=== PATIENT | male | born 1995 | race Caucasian/White ===

== ENCOUNTER 2019-03-22 15:16 | Emergency (ER) | payer BC ==
[2019-03-22] MEDS ORDERED: Promethazine 25 MG/ML SDV IM ONE (15:27)
[2019-03-22] MEDS ORDERED: Morphine 4 MG/ML Syringe IM ONE (15:27)
--- NOTE | 2019-03-22 15:32 | EDM.PDOC ---
ED HPI GENERAL MEDICAL PROBLEM - General Chief Complaint: Lower Extremity Injury/Pain Stated Complaint: RIGHT LEG INJURY Time Seen by Provider: 03/22/19 15:24 Source of Information: Reports: Patient History Limitations: Reports: No Limitations - History of Present Illness INITIAL COMMENTS - FREE TEXT/NARRATIVE: Patient is an unfortunate 24-year-old male who presents emergency Department today with complaint of left leg and foot pain. Patient reports she was in his normal state of health approximately 20 minutes prior to arrival when he was riding a saddle bronc and was ejected from the horse and the horse stepped on his left ankle. Patient said swelling tenderness and pain in that ankle ever since. He was able to ambulate with an antalgic gait on his left reports she had an immense amount of pain. Pain is worse with ambulation or palpation improves with rest does not alleviate. Distal neurovascular is intact Left Lower Leg Pain Score (Numeric/FACES): 10 - Related Data Allergies Allergy/AdvReac Type Severity Reaction Status Date / Time No Known Allergies Allergy Verified 03/22/19 15:24 Home Meds: Home Meds Acetaminophen with Codeine [Tylenol with Codeine #3 Tablet] 1 each PO Q4H PRN # 20 tablet 03/22/19 [Rx] Review of Systems - Review of Systems Review Of Systems: See Below Constitutional: Denies: Chills, Fever Musculoskeletal: Reports: Leg Pain, Joint Pain ED EXAM, GENERAL - Physical Exam Exam: See Below Exam Limited By: No Limitations General Appearance: Alert, WD/WN, Mild Distress Ears: Normal External Exam, Normal Canal, Hearing Grossly Normal, Normal TMs Nose: Normal Inspection, Normal Mucosa, No Blood Throat/Mouth: Normal Inspection, Normal Lips, Normal Teeth, Normal Gums, Normal Oropharynx, Normal Voice, No Airway Compromise Head: Atraumatic, Normocephalic Neck: Normal Inspection, Supple, Non-Tender, Full Range of Motion Respiratory/Chest: No Respiratory Distress, Lungs Clear, Normal Breath Sounds, No Accessory Muscle Use, Chest Non-Tender Cardiovascular: Normal Peripheral Pulses, Regular Rate, Rhythm, No Edema, No Gallop, No JVD, No Murmur, No Rub GI/Abdominal: Normal Bowel Sounds, Soft, Non-Tender, No Organomegaly, No Distention, No Abnormal Bruit, No Mass Back Exam: Normal Inspection, Full Range of Motion, NT Extremities: Joint Swelling, Leg Pain (Patient has moderate swelling to his left heel malleolus and tenderness to his left midshaft fibula still neurovascular is intact), Other Neurological: Alert Skin Exam: Warm, Dry, No Rash ED TRAUMA EXTREMITY PROCEDURES - Additional/Other Procedure(s) Other (Free Text) Procedure(s): Ortho-Glass splint sugar tong left lower extremity applied by me post evaluation distal neurovascular intact Course - Vital Signs Last Recorded V/S: Last Vital Signs Temp 97.8 F 03/22/19 15:24 Pulse 84 03/22/19 15:24 Resp 16 03/22/19 15:24 BP 142/99 H 03/22/19 15:24 Pulse Ox 100 03/22/19 15:24 - Orders/Labs/Meds Orders: Active Orders 24 hr Category Date Time Status Ankle Min 3V Lt [CR] Stat Exams 03/22/19 15:28 Taken Foot Comp Min 3V Lt [CR] Stat Exams 03/22/19 15:28 Taken Tibia Fibula Lt [CR] Stat Exams 03/22/19 15:28 Taken Meds: Medications Discontinued Medications Generic Name Dose Route Start Last Admin Trade Name Freq PRN Reason Stop Dose Admin Morphine Sulfate 4 mg 03/22/19 15:27 03/22/19 15:50 Morphine IM 03/22/19 15:28 4 mg ONETIME ONE Administration Promethazine HCl 25 mg 03/22/19 15:27 03/22/19 15:49 Phenergan IM 03/22/19 15:28 25 mg ONETIME ONE Administration - Re-Assessments/Exams Free Text/Narrative Re-Assessment/Exam: 03/22/19 16:13 Left ankle interpret by me distal fibula fracture Departure - Departure Time of Disposition: 16:13 Disposition: Home, Self-Care 01 Clinical Impression: Fracture of distal fibula Qualifiers: Encounter type: initial encounter Fracture type: closed Fracture morphology: unspecified fracture morphology Laterality: left Qualified Code(s): S82.832A - Other fracture of upper and lower end of left fibula, initial encounter for closed fracture - Discharge Information Prescriptions: Acetaminophen with Codeine [Tylenol with Codeine #3 Tablet] 1 each PO Q4H PRN # 20 tablet PRN Reason: Pain Referrals: PCP,None [Primary Care Provider] - Forms: ED Department Discharge Additional Instructions: Home, rest, ice, elevate, follow-up with an orthopedic surgeon in the next week , use crutches, no weight bearing left lower extremity, return as needed for worsening condition Sepsis Event Note - Focused Exam Vital Signs: Vital Signs Temp Pulse Resp BP Pulse Ox 03/22/19 15:24 97.8 F 84 16 142/99 H 100 Date Exam was Performed: 03/22/19 Time Exam was Performed: 16:13 - My Orders Last 24 Hours: My Active Orders 03/22/19 15:28 Ankle Min 3V Lt [CR] Stat Foot Comp Min 3V Lt [CR] Stat Tibia Fibula Lt [CR] Stat - Assessment/Plan Last 24 Hours: My Active Orders 03/22/19 15:28 Ankle Min 3V Lt [CR] Stat Foot Comp Min 3V Lt [CR] Stat Tibia Fibula Lt [CR] Stat
--- NOTE | 2019-03-24 09:16 | CR ---
Left foot: Four views of the left foot were obtained. Comparison: No prior foot exam. Joint spaces are preserved. No fracture, dislocation or other bony abnormality is identified. Distal fibular shaft fracture partially visualized as described on previous study. Impression: 1. No abnormality is identified on left foot exam. Diagnostic code #2 This report was dictated in [place] Standard Time
--- NOTE | 2019-03-24 09:16 | CR ---
Left ankle: Four views of left ankle were obtained. Comparison: No prior left ankle exam. Ankle mortise is symmetric. Mildly displaced fracture is noted within the distal diaphysis of the fibula. No additional fracture or other bony abnormality is seen. Impression: 1. Mildly displaced distal fibular diaphyseal fracture. 2. No additional abnormality is seen on left ankle exam. Diagnostic code #3 This report was dictated in [place] Standard Time
--- NOTE | 2019-03-24 09:17 | CR ---
Left tibia and fibula: AP and lateral views of the left tibia and fibula were obtained. Comparison: No previous study. Slightly displaced distal fibular diaphyseal fracture is noted. Displacement by slightly greater than one cortical width is noted. No additional fracture or other bony abnormality is appreciated. Impression: 1. Slightly displaced distal fibular diaphyseal fracture. 2. Left tibia and fibula study is otherwise unremarkable. Diagnostic code #3 This report was dictated in [place] Standard Time
== END 2019-03-22 16:35 | disposition home or self-care (01) ==
LOC: JD.ED 15:16
DX: S82.832A Other fracture of upper and lower end of left fibula, initial encounter for closed fracture (principal); V80.010A Animal-rider injured by fall from or being thrown from horse in noncollision accident, initial encounter
CPT/HCPCS: 29515; 73590; 73610; 73630; 96372; 99283; J2270; J2550